=== PATIENT | female | born 1950 | race Caucasian/White ===

== ENCOUNTER → 2023-09-13 13:46 | Outpatient (REF) | payer OTHER, SELFPAY | LOC: HWRAD 13:46 | PROVIDERS: ATTENDING PHYSICIAN Family Medicine | DX: N20.0 Calculus of kidney (principal); R10.2 Pelvic and perineal pain | CPT/HCPCS: 76770; 76856 ==

== ENCOUNTER 2024-01-17 12:08 | Emergency (ER) | payer OTHER, SELFPAY ==
[2024-01-17 12:10] VITALS: BP 167/84
--- NOTE | 2024-01-17 12:41 | ED.GENMED ---
History of Present Illness
<Natali Soriano PA-C - Last Filed: 01/17/24 20:04>
General
Chief Complaint: Head Injury
Source: patient
Exam Limitations: none
Time Seen by Provider: 01/17/24 12:40
Nursing documentation reviewed up to this point in time: agreed with
Travel History
Have you had any contact with someone who has COVID-19?: No
Do you have any symptoms of coronavirus? Fever > 100 degrees, chills, cough, shortness of breath, sore throat, loss of taste or smell, muscle aches, or headache?: No
History of Present Illness
History of Present Illness:
This is a 73-year-old female with a past medical history of asthma, chronic UTIs presenting to the emergency department today with pain in her tailbone and posterior head pain following a fall. Patient states that she has chronic balance issues and
she follows with her primary care for this. Patient states that she is walking into her garage today to get something for her garden when she fell back when she was trying to grab something from a shelf. Patient states that she fell down on her
buttocks and then rolled back and hit the back of her head on the floor. Patient called her daughter who came over and helped her get up. Patient has since been able to ambulate without any difficulties. Patient denies dizziness, lightheadedness,
chest pain, shortness of breath, abdominal pain, headache, visual changes, one-sided weakness. Patient does have some associated neck pain with this. Patient denies any paresthesias. Patient does not take any blood thinners.
Past History
<Natali Soriano PA-C - Last Filed: 01/17/24 20:04>
Past History
ED Past Medical History: Other (Kidney stone 30 years ago)
ED Past Surgical History: Gynecological
Social History
Tobacco: Non-smoker
Alcohol: None
Drug: None
Personal:
Living: with family
Employment: Employed
Family History
Family History: Other (Noncontributory)
Review of Systems
<Natali Soriano PA-C - Last Filed: 01/17/24 20:04>
Review of Systems
All Other Systems: ROS reviewed and negative except as documented in HPI and ROS
Phy Exam
<Natali Soriano PA-C - Last Filed: 01/17/24 20:04>
Physical Exam
Physical Exam:
General: Patient is well appearing and in no acute distress; non-toxic
Skin: See head exam below. No other lacerations/lesions.
Head: There is a palpable hematoma on the right posterior scalp with a jagged 4 cm laceration. No tenderness palpation of the facial bones.
Eyes: Sclera non-icteric. EOMs intact. PERRLA.
Cardiac: Regular rate and rhythm, no murmurs. Tenderness palpation of external chest wall. No ecchymosis or signs of trauma
Peripheral Vascular: No lower extremity edema
Pulm: Normal respiratory effort, no wheezes, rales, rhonchi
Abdomen: No abdominal tenderness to palpation, no ecchymosis, no signs of trauma
Musculoskeletal: Full range of motion of bilateral upper and lower extremities. No pain with passive range of motion. No bony tenderness of the bilateral lower extremities. There is some tenderness overlying the sacrum and the coccyx. But no
ecchymosis or edema. No palpable step-offs or deformities.
Neuro: CN II-XII intact, no focal neurologic deficits. Normal finger to nose, heel to bergman testing.
Psychiatric: Appropriate mood and affect.
Course
<Natali Soriano PA-C - Last Filed: 01/17/24 20:04>
Orders/Labs/Results
Orders:
Orders
01/17/24 13:04
CT Cervical Spine W/o Iv Contr Urgent
Comment:
Reason For Exam: neck pain following fall and head trauma
CT Head W/o Iv Contrast Urgent
Comment:
Reason For Exam: posterior head trauma
Sacrum/Coccyx 2 View CR [CR Sacrum/coccyx Min 2 View] Urgent
Comment:
Reason For Exam: coccyx pain following fall
01/17/24 13:35
Complete Blood Count/With Diff Urgent
Comprehensive Metabolic Panel Urgent
01/17/24 13:37
Acetaminophen [Tylenol] 1,000 mg .ROUTE .STK-MED ONE
01/17/24 13:38
Acetaminophen [Tylenol] 1,000 mg PO NOW STA
01/17/24 15:13
Ibuprofen [Motrin] 600 mg PO NOW STA
01/17/24 15:38
Tetanus/Diphth/Acelpertussis [Adacel] 0.5 ml IM .ONCE ONE
Abnormal Lab Results
01/17/24
13:35
WBC 12.0 H 10^3/uL
(4.8-10.8)
MPV 10.8 H fL
(7.4-10.4)
Abs Immat Gran (auto) 0.1 H 10^3/uL
(0-0.05)
Absolute Neuts (auto) 9.5 H 10^3/uL
(1.4-6.5)
Absolute Monos (auto) 0.7 H 10^3/uL
(0.1-0.6)
Immature Gran % 1.0 H %
(0-0.5)
Neutrophils % 79.4 H %
(42.2-75.2)
Lymphocytes % 12.6 L %
(20.5-51.1)
BUN 23 H mg/dl
(7-17)
Glucose 122 H mg/dl
(70-99)
Calcium 10.9 H mg/dl
(8.4-10.2)
01/17/24 13:35
01/17/24 13:35
Vital Signs
Initial and Last Documented VS:
Initial Vital Signs
Temp Pulse Resp BP Pulse Ox
97.8 F 96 18 167/84 100
01/17/24 12:10 01/17/24 12:10 01/17/24 12:10 01/17/24 12:10 01/17/24 12:10
Last Documented Vital Signs
Temp Pulse Resp BP Pulse Ox
97.8 F 90 18 156/87 99
01/17/24 12:10 01/17/24 15:04 01/17/24 15:04 01/17/24 15:04 01/17/24 15:04
<Pavan Perdue MD - Last Filed: 01/18/24 09:46>
Orders/Labs/Results
Orders:
Orders
01/17/24 13:04
CT Cervical Spine W/o Iv Contr Urgent
Comment:
Reason For Exam: neck pain following fall and head trauma
CT Head W/o Iv Contrast Urgent
Comment:
Reason For Exam: posterior head trauma
Sacrum/Coccyx 2 View CR [CR Sacrum/coccyx Min 2 View] Urgent
Comment:
Reason For Exam: coccyx pain following fall
01/17/24 13:35
Complete Blood Count/With Diff Urgent
Comprehensive Metabolic Panel Urgent
01/17/24 13:37
Acetaminophen [Tylenol] 1,000 mg .ROUTE .STK-MED ONE
01/17/24 13:38
Acetaminophen [Tylenol] 1,000 mg PO NOW STA
01/17/24 15:13
Ibuprofen [Motrin] 600 mg PO NOW STA
01/17/24 15:38
Tetanus/Diphth/Acelpertussis [Adacel] 0.5 ml IM .ONCE ONE
Abnormal Lab Results
01/17/24
13:35
WBC 12.0 H 10^3/uL
(4.8-10.8)
MPV 10.8 H fL
(7.4-10.4)
Abs Immat Gran (auto) 0.1 H 10^3/uL
(0-0.05)
Absolute Neuts (auto) 9.5 H 10^3/uL
(1.4-6.5)
Absolute Monos (auto) 0.7 H 10^3/uL
(0.1-0.6)
Immature Gran % 1.0 H %
(0-0.5)
Neutrophils % 79.4 H %
(42.2-75.2)
Lymphocytes % 12.6 L %
(20.5-51.1)
BUN 23 H mg/dl
(7-17)
Glucose 122 H mg/dl
(70-99)
Calcium 10.9 H mg/dl
(8.4-10.2)
01/17/24 13:35
01/17/24 13:35
Vital Signs
Initial and Last Documented VS:
Initial Vital Signs
Temp Pulse Resp BP Pulse Ox
97.8 F 96 18 167/84 100
01/17/24 12:10 01/17/24 12:10 01/17/24 12:10 01/17/24 12:10 01/17/24 12:10
Last Documented Vital Signs
Temp Pulse Resp BP Pulse Ox
97.8 F 90 18 156/87 99
01/17/24 12:10 01/17/24 15:04 01/17/24 15:04 01/17/24 15:04 01/17/24 15:04
Procedures
Lucialt;Natali Soriano PA-C - Last Filed: 01/17/24 20:04>
Laceration Closure
Right Posterior Scalp:
Status of Wound: clean
Size of Wound in cm: 4
Description of Wound Edges: ragged
Preparation: cleaned with saline
Anesthesia: 1% Lidocaine with epi
Revision/Debridement: routine- no revision
Wound exploration: explored to base- no FB
Type of Closure: single layer closure and other (zeferino )
Additional information:
5 zeferino were placed, patient tolerated the procedure well
<Natali Soriano PA-C - Last Filed: 01/17/24 20:04>
MDM/Problems Addressed
Differential Diagnosis Includes:
ddx include epidural hematoma, concussion, skull fracture, coccygeal fracture, musculoskeletal sprain/strain
MDM/Problems Addressed:
Fall, head trauma, sacral pain:
This is a 73-year-old female with a past medical history of asthma, chronic UTIs presenting to the emergency department today with pain in her tailbone and posterior head pain following a fall. Has a laceration to the right posterior scalp and
complains of sacral pain as well, able to walk without difficulty. On exam, she is well-appearing does have a laceration to right posterior scalp which was repaired with zeferino, patient tolerated procedure well. Her CT scan was negative for any
acute intracranial abnormalities, her CT of the cervical spine demonstrated chronic degenerative changes but no fractures. Considering patient is able to ambulate without difficulty, she has no dizziness, lightheadedness, takes no blood thinner,
has no focal neurologic deficits, she is stable for discharge follow-up with her primary. Reviewed this case with my attending Dr. Perdue.
Chronic conditions affecting care:
asthma, chronic UTIs
Acute Exacerbation and/or Progression of Chronic Illness:
n/a
<Natali Soriano PA-C - Last Filed: 01/17/24 20:04>
*Pulse Oximetry
Patient hypoxic: no
*Critical Care Note
Total Time (30-74mins, 75-104mins- exclusive of procedures): Not Applicable
Data Reviewed
Review of Other/Old Records Reveals: Records (Reviewed ER physician documentation from 03/22/2019)
Source: patient and records
<Natali Soriano PA-C - Last Filed: 01/17/24 20:04>
Patient Management
Escalation/DeEscalation of care consider admission/obs:
Admit not indicated
ED Attending Note
<Natali Soriano PA-C - Last Filed: 01/17/24 20:04>
-
Portions of this chart may have been created with voice recognition software.� Occasional wrong word or��sound alike� substitutions may have occurred due to the inherent limitations of voice recognition software.
<Pavan Perdue MD - Last Filed: 01/18/24 09:46>
ED Attending Note
Patient seen and examined by attending physician: Yes
ED Attending Note:
Pt presents to ED for evaluation after losing balance and falling backwards, landing initially on her buttocks and hitting back of her head against the floor. Pt does not take any blood thinners. Denies LOC. Denies neck pain. Denies loss of
sensation/weakness. Denies dizziness. Denies nausea/vomiting.
General: well nourished female, in mild distress. afebrile.
Heent: eomi. an approx 5 cm total superficial laceration over posterior scalp without active bleeding.
Abdl: soft and nontender.
Neuro: aao x 3. no focal neurological deficit.
Skin: no rash.
Psych: pleasant and cooperative.
CT: no acute findings.
Scalp lac repaired with staple placement. Advised PCP f/u as outpatient. Head injury precautions provided, including potential post concussive syndrome.
Discharge Plan
Departure
Patient Disposition: Home (Routine Discharge)
Date of Disposition: 01/17/24
Time of Disposition: 15:27
Patient with high blood pressure during this ER visit?: Yes
Condition: Good
Discharge Problem:
Fall, Laceration of scalp
Instructions: Laceration Repair With [place] (DC), BLOOD PRESSURE, Fall Prevention for Older Adults
Prescriptions:
No Action
Restasis 0.05% Ophthalmic Emulsion:
1 drp BOTH EYES BID
lidocaine 1 PATCH adhesive patch,medicated
1 patch topical PRN PRN (Reason: pain)
phenazopyridine 100 MG tablet
100 mg PO TIDPRN PRN (Reason: pain)
Cipro
1 dose PO BID
hydrocodone-acetaminophen 1 TABLET tablet
1 tab PO Q4HPRN PRN (Reason: pain) Qty: 10 0RF
ibuprofen 600 MG tablet
600 mg PO Q6 Qty: 20 0RF
Referrals:
Emeli Reza MD [Family Provider] -
Activity Restrictions/Additional Instructions:
5 zeferino were placed in your scalp. Please return to the emergency department should you experience increasing pain around your wound, surrounding redness to your wound, purulent drainage from your wound, fevers or chills, dizziness,
lightheadedness, chest pain, shortness of breath, visual changes, visual loss, or any other concerning signs or symptoms.
You can report to your family doctor to have zeferino removed in 7-10 days.
Interventions
Interventions:
*Risk Screen - Suicide Last Done: 01/17/24 14:39
*General Assessment Last Done: 01/17/24 12:10
*Neglect/Abuse Screening Last Done: 01/17/24 14:39
ED- Fall Risk Assessment Last Done: 01/17/24 15:58
*ED COVID-19 Vaccine History Last Done: 01/17/24 12:10
*Nursing Disposition Last Done: 01/17/24 15:58
ED- Neurological Assessment Last Done: 01/17/24 14:39
ED-Skin Assessment Last Done: 01/17/24 14:39
Discharge Date and Time
Discharge Date/Time: 01/17/24 15:59
Print Language: CAMBODIAN
[2024-01-17] MEDS: TYLENOL 1000 MG PO (13:40)
[2024-01-17 13:45] LABS: % Basophils 0.3 % (0-2); % Eosinophils 0.5 % (0-6); % Lymphocytes 12.6 % (20.5-51.1); % Monocytes 6.2 % (1.7-9.3); % Neutrophils 79.4 % (42.2-75.2); Absolute Eosinophils 0.1 10^3/uL (0-0.7); Absolute Immature Granulocytes 0.1 10^3/uL (0-0.05); Absolute Lymphocytes 1.5 10^3/uL (1.2-3.4); Absolute Monocytes 0.7 10^3/uL (0.1-0.6); Absolute Neutrophils 9.5 10^3/uL (1.4-6.5); Hematocrit 42.4 % (37.0-47.0); Hemoglobin 14.4 g/dL (12.0-16.0); Mean Corpuscular Hgb 30.9 pg (27.0-31.0); Mean Platelet Volume 10.8 fL (7.4-10.4); Nucleated Red Blood Cells % 0 %; Platelet Count 184 10^3/uL (130-400); Red Blood Cell Count 4.66 10^6/uL (4.20-5.40); Red Cell Dist. Width 13.2 % (11.5-14.5)
[2024-01-17 14:32] LABS: ALT (SGPT) 23 U/L (0-35); AST (SGOT) 28 U/L (14-36); Albumin 4.3 g/dl (3.5-5.0); Alkaline Phosphatase 69 U/L (38-126); Blood Urea Nitrogen 23 mg/dl (7-17); Calcium 10.9 mg/dl (8.4-10.2); Carbon Dioxide 24 mmol/L (22-30); Chloride 107 mmol/L (98-107); Glucose 122 mg/dl (70-99); Potassium 4.3 mmol/L (3.5-5.1); Sodium 138 mmol/L (135-145); Total Bilirubin 0.8 mg/dl (0.2-1.3); Total Protein 7.1 g/dl (6.3-8.2); eGFR > 60.00
[2024-01-17 15:04] VITALS: BP 156/87
[2024-01-17] MEDS: MOTRIN 600 MG PO (15:21)
[2024-01-17] MEDS: ADACEL 0.5 ML IM (15:43)
== END 2024-01-17 15:59 | disposition home or self-care (01) ==
LOC: EMR 12:08
PROVIDERS: Physician Assistant; EMERGENCY PHYSICIAN Emergency Medicine; FAMILY PHYSICIAN Family Medicine
DX: S01.01XA Laceration without foreign body of scalp, initial encounter (principal); M54.50 Low back pain, unspecified; S00.03XA Contusion of scalp, initial encounter; M54.2 Cervicalgia; W19.XXXA Unspecified fall, initial encounter; Y93.01 Activity, walking, marching and hiking; Y92.008 Other place in unspecified non-institutional (private) residence as the place of occurrence of the external cause; Z23 Encounter for immunization; R03.0 Elevated blood-pressure reading, without diagnosis of hypertension; J45.909 Unspecified asthma, uncomplicated; Z87.440 Personal history of urinary (tract) infections; Z87.442 Personal history of urinary calculi; Z91.048 Other nonmedicinal substance allergy status
CPT/HCPCS: 99285; 12002; 90471; 70450; 72125; 72220; 80053; 85025; 90715

== ENCOUNTER → 2024-02-22 07:32 | Outpatient (REF) | payer OTHER, SELFPAY | LOC: MRI 3T 07:32 | PROVIDERS: ATTENDING PHYSICIAN Family Medicine | DX: M54.41 Lumbago with sciatica, right side (principal) | CPT/HCPCS: 72148 ==

== ENCOUNTER → 2024-03-06 10:33 | Outpatient (REF) | payer OTHER, SELFPAY | LOC: WDC 10:33 | PROVIDERS: ATTENDING PHYSICIAN Family Medicine | DX: Z12.31 Encounter for screening mammogram for malignant neoplasm of breast (principal) | CPT/HCPCS: 77063; 77067 ==

== ENCOUNTER 2024-04-11 16:38 | Inpatient (IN) | payer OTHER, SELFPAY ==
[2024-04-11] VITALS (10 sets, daily range): BP systolic 100–142; BP diastolic 58–90; BMI 23.4; BMI 23.3
--- NOTE | 2024-04-11 09:05 | ED.GENMED ---
History of Present Illness
General
Chief Complaint: Musculo-Skeletal Complaint
Time Seen by Provider: 04/11/24 08:52
History of Present Illness
History of Present Illness:
Patient is a 73-year-old woman with history of arthritis, recurrent UTIs presenting to the emergency department with knee pain. Patient states that she had a fall a few months ago. She been having chronic back pain since then. She has been having
difficulty ambulating as well secondary to the pain. She noticed that her right knee was more swollen which she attributed to the way she was ambulating. However 2 days ago she states that the swelling suddenly worsened. It was extremely painful.
It felt hot to touch. She been having some nausea and fevers at home. No numbness tingling. She does state that her ankle feels more swollen as well. No recent trauma. No tick bites.
Past History
Past History
ED Past Medical History: Other (Kidney stone 30 years ago)
ED Past Surgical History: Gynecological
Social History
Tobacco: Non-smoker
Alcohol: None
Drug: None
Personal:
Living: with family
Employment: Employed
Family History
Family History: Other (Noncontributory)
Phy Exam
Physical Exam
Physical Exam:
GENERAL: in no acute distress
HEENT: normocephalic, extraocular movements intact, moist oral mucosa
NECK: normal inspection
RESPIRATORY: no respiratory distress, clear to auscultation bilaterally
CARDIOVASCULAR: regular rate and rhythm
ABDOMEN/: soft, non-distended, non-tender to palpation, no rebound or guarding
EXTREMITIES: Right lower extremity with hot swollen knee with limited range of motion secondary to pain, no overlying cellulitis, dopplerable DP pulses. Left lower extremity with no tenderness or swelling at the knee. Warm, dopplerable distal
pulses.
NEUROLOGIC: awake and alert, moves all extremities
SKIN: warm
Course
Orders/Labs/Results
Orders:
Orders
04/11/24 09:04
CR Knee- Right 4 Or More View* Urgent
Comment:
Reason For Exam: knee pain, swelling
04/11/24 09:05
Acetaminophen [Tylenol] 1,000 mg PO NOW STA
04/11/24 09:14
Basic Metabolic Panel Urgent
CBC/With ESR Urgent
CRP [C-Reactive Protein] Urgent
04/11/24 11:14
Body Fluid Cell Count Urgent
What is the Body Fluid: joint
Date Specimen was Collected: 04/11/24
Time Specimen was Collected: 10:47
Comment: with DIFF
Body Fluid Crystals Urgent
What is the Body Fluid: joint
Date Specimen was Collected: 04/11/24
Time Specimen was Collected: 10:47
Fluid Culture with Gram Stain Urgent
MADELYN Source: Joint Fluid
Specimen Description:
Date Specimen was Collected: 04/11/24
Time Specimen was Collected: 10:47
04/11/24 14:59
Blood Culture Urgent
MADELYN Source: Blood/Venous
Specimen Description:
CefTRIAXone [Rocephin] 2,000 mg IV NOW STA
04/11/24 15:29
Blood Culture Routine
MADELYN Source: Blood/Venous
Specimen Description:
04/11/24 16:00
*Vancomycin IV Pharmacy to Dose VANCOMYCIN Pharmacy to Dose [VANCOCIN Pharmacy to Dose] 1 each Pharmacy To Prepare [Call Pharmacy To Prepare] 0 ml IV PER PROTOCOL
Abnormal Lab Results
04/11/24
09:14
MPV 11.1 H fL
(7.4-10.4)
Absolute Neuts (auto) 7.1 H 10^3/uL
(1.4-6.5)
Absolute Lymphs (auto) 1.1 L 10^3/uL
(1.2-3.4)
Absolute Monos (auto) 0.7 H 10^3/uL
(0.1-0.6)
Neutrophils % 79.3 H %
(42.2-75.2)
Lymphocytes % 12.3 L %
(20.5-51.1)
BUN 20 H mg/dl
(7-17)
Glucose 101 H mg/dl
(70-99)
Calcium 11.3 H mg/dl
(8.4-10.2)
C-Reactive Protein 22.80 H mg/L
(0.0-10.00)
04/11/24 09:14
04/11/24 09:14
Vital Signs
Initial and Last Documented VS:
Initial Vital Signs
Temp Pulse Resp BP Pulse Ox
100.0 F 91 18 141/82 100
04/11/24 08:34 04/11/24 08:34 04/11/24 08:34 04/11/24 08:34 04/11/24 08:34
Last Documented Vital Signs
Temp Pulse Resp BP Pulse Ox
97.9 F 91 18 100/84 98
04/11/24 11:15 04/11/24 08:34 04/11/24 08:34 04/11/24 13:00 04/11/24 13:45
Procedures
Incision/Drainage/Joint Aspiration
Right Knee:
Anethesia: 1% Lidocaine
Preparation: cleaned with Betadine
Type of procedure: aspiration
Nature of site: other (swelling)
How much fluid was obtained?: number in mls (25)
Fluid description: cloudy
MDM/Problems Addressed
Differential Diagnosis Includes:
Patient is a 73-year-old woman with history of arthritis presenting to the emergency department with knee pain that acutely worsened 2 days ago. Vitals here notable for temperature of 100 and exam is notable for hot swollen right knee. Concern for
septic arthritis versus arthritis versus gout. Could be osteo. Doubt any fracture. Will check blood work including inflammatory markers and x-ray. Will complete an arthrocentesis. Will pain control.
*Critical Care Note
Total Time (30-74mins, 75-104mins- exclusive of procedures): Not Applicable
Update Note
Update Note:
On reevaluation patient states that the pain is still there. X-ray per my interpretation with no obvious fracture. . I did completed an arthrocentesis of the knee. Results does show WBC of 26,000 with significant PMN at 89%. Given that patient
had a oral temperature of 100 on arrival with the above joint fluid analysis I did discuss orthopedics. After conversation with orthopedics less likely to be septic arthritis however could admit until cultures result. I did update patient and
family members at bedside of these findings. Given the significant ambulatory dysfunction and initial temperature will admit with IV antibiotics until the cultures result. Discussed with hospitalist.
ED Attending Note
-
Portions of this chart may have been created with voice recognition software.� Occasional wrong word or��sound alike� substitutions may have occurred due to the inherent limitations of voice recognition software.
Discharge Plan
Departure
Patient Disposition: Admit
Date of Disposition: 04/11/24
Time of Disposition: 14:59
Presentation/result/management discussed w/ accepting MD/DO: Hospitalist
Discharge Problem:
Knee swelling
Prescriptions:
No Action
Restasis 0.05% Ophthalmic Emulsion:
1 drp BOTH EYES BID
lidocaine 1 PATCH adhesive patch,medicated
1 patch topical PRN PRN (Reason: pain)
phenazopyridine 100 MG tablet
100 mg PO TIDPRN PRN (Reason: pain)
Cipro
1 dose PO BID
hydrocodone-acetaminophen 1 TABLET tablet
1 tab PO Q4HPRN PRN (Reason: pain) Qty: 10 0RF
ibuprofen 600 MG tablet
600 mg PO Q6 Qty: 20 0RF
Referrals:
Emeli Reza MD [Family Provider] -
Interventions
Interventions:
*Risk Screen - Suicide Last Done: 04/11/24 08:34
*General Assessment Last Done: 04/11/24 08:34
*Neglect/Abuse Screening Last Done: 04/11/24 08:34
ED- Fall Risk Assessment Last Done: 04/11/24 08:55
*ED COVID-19 Vaccine History Last Done: 04/11/24 08:55
ED-Musculoskeletal Assessment Last Done: 04/11/24 08:55
Discharge Date and Time
Print Language: KYRGYZ
[2024-04-11] MEDS: TYLENOL 1000 MG PO (09:14)
[2024-04-11 09:22] LABS: % Basophils 0.2 % (0-2); % Eosinophils 0.3 % (0-6); % Immature Granulocytes 0.3 % (0-0.5); % Lymphocytes 12.3 % (20.5-51.1); % Monocytes 7.6 % (1.7-9.3); % Neutrophils 79.3 % (42.2-75.2); Absolute Lymphocytes 1.1 10^3/uL (1.2-3.4); Absolute Monocytes 0.7 10^3/uL (0.1-0.6); Absolute Neutrophils 7.1 10^3/uL (1.4-6.5); Hematocrit 42.5 % (37.0-47.0); Hemoglobin 14.7 g/dL (12.0-16.0); Mean Corp Hgb Conc. 34.6 g/dL (33.0-37.0); Mean Corpuscular Hgb 30.9 pg (27.0-31.0); Mean Corpuscular Volume 89.5 fL (81.0-99.0); Mean Platelet Volume 11.1 fL (7.4-10.4); Nucleated Red Blood Cells % 0 %; Platelet Count 169 10^3/uL (130-400); Red Blood Cell Count 4.75 10^6/uL (4.20-5.40); Red Cell Dist. Width 12.7 % (11.5-14.5)
[2024-04-11 09:46] LABS: Erythrocyte Sed Rate 19 mm/hour (0-20)
[2024-04-11 09:48] LABS: Blood Urea Nitrogen 20 mg/dl (7-17); Calcium 11.3 mg/dl (8.4-10.2); Carbon Dioxide 23 mmol/L (22-30); Chloride 105 mmol/L (98-107); Estimated Creatinine Clearance 62 ml/min; Glucose 101 mg/dl (70-99); Potassium 4.1 mmol/L (3.5-5.1); Sodium 140 mmol/L (135-145); eGFR > 60.00
[2024-04-11 13:19] LABS: Body Fluid Mononuclear 10.8 %; Body Fluid Polymorphonuclear 89.2 %; Body Fluid WBC 26050 /CUMM
[2024-04-11 13:35] LABS: Body Fluid Second Tech EM
[2024-04-11] MEDS: ROCEPHIN 2000 MG IV (15:46)
--- NOTE | 2024-04-11 16:07 | HPS.HSE ---
Family Physician
-
Family Physician: Emeli Reza MD
Chief Complaint
-
Right knee pain
History of Present Illness
Patient is a 73 years old female with no significant past medical history other than hypothyroidism who presents to the emergency room with worsening of right knee pain and swelling. Patient reports falling 3 months prior to presentation at that
time hurting back. Patient had an evaluation with MRI which showed compression fracture and multilevel degenerative joint disease, although with no evidence of infection with weeks prior to presentation. She noticed developing right knee pain
attributing that to the problem walking due to her lower back pain. Although over the last 24 to 48 hours pain became more intensive with increased edema and erythema. Patient reports fever at home. In addition patient complains of diffuse and
multiple joint pain throughout the day that including lower back pain, wrists and elbows. She denies any stiffness/morning symptoms. She denies any trauma to the knee, recent travel or tick bite, rash.
Patient presented emergency room and had right knee arthrocentesis with fluid findings relevant for elevated white count over 20,000. Synovial fluid was negative for crystals and negative Gram stain pending cultures.
Medical History
Past Medical History
Past Medical History: Reports GERD and Hypothyroidism
Past Surgical History: Reports None
Social History
Tobacco: Non-smoker
Alcohol: None
Drug: None
Personal:
Living: With Family
Employment: Retired
Family History
Family History: Not pertinent
Allergies / Home Medications
Allergies reflects when Allergies were last updated in [facility].
Home Medications with original date entered in [facility]
Allergy/Medication List:
Allergies
Allergy/AdvReac Type Severity Reaction Status Date / Time
NKA - No Known Allergies Allergy Severe nka Uncoded 01/17/24 12:13
dust mites,mold Allergy cough Uncoded 01/17/24 12:13
Home Medications
Lactobac no.2-Bifidobac no.1-S. thermo 112.5 billion cell capsule (Visbiome) 1 cap PO DAILY 04/11/24
cetirizine 10 mg tablet (Zyrtec) 10 mg PO DAILY 04/11/24
levothyroxine 112 mcg tablet (Synthroid) 112 mcg PO DAILY 04/11/24
pantoprazole 20 mg tablet,delayed release (Protonix) 20 mg PO DAILY 04/11/24
rosuvastatin 5 mg tablet 5 mg PO DAILY 04/11/24
Review of Systems
-
A 12 point ROS was completed and negative except as noted: Yes
Physical Exam
Vital Signs
Vital Signs
Temp Pulse Resp BP Pulse Ox
97.9 F 91 18 100/84 98
04/11/24 11:15 04/11/24 08:34 04/11/24 08:34 04/11/24 13:00 04/11/24 13:45
Physical Exam
General: Well Developed, Well Nourished and No Apparent Distress
HEENT: NormoCephalic, Moist mucous membranes and Atraumatic
Respiratory: Clear
Cardiac: S1/S2 and Regular Rhythm; No Murmur or Rub
GI: Soft, Non Tender, Non Distended and Normal Bowel Sounds; No Organomegaly
Rectal: Deferred by Provider
Musculoskeletal: No Clubbing, No Cyanosis, No Edema and Other (Right knee with erythema and induration without fluctuance. Decreased range of motion's. Good peripheral pulses)
Skin: No Rash
Neuro: Awake, Alert, Oriented, AO x 3 and Nonfocal/grossly intact
Psych: Anxious
Laboratory Results
-
04/11/24 09:14
04/11/24 09:14
Data Reviewed
-
Diagnostic Radiology: Report Reviewed by me
Lab Data: Labs Reviewed by me
Impression/Plan
-
IMPRESSION:
Right knee monoarthritis with concern for septic arthritis
Diffuse joint pain with prior history of osteoarthritis
Status post fall 3 months prior to presentation
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
Other conditions
Hypothyroidism.
GERD.
PLAN:
Right knee arthritis with concern for septic arthritis
Status post diagnostic arthrocentesis in ED
Synovial fluid with significant leukocytosis over 20K with neutrophil predominance. Gram stain negative pending cultures. Crystal negative
Noted with very mild elevation of CRP.
Follow synovial fluid cultures
Follow blood cultures.
Orthopedic consult
ID consult
Empiric antibiotics initiated in ED: Vancomycin/ceftriaxone.
Low risk but will check Lyme titer.
Check rheumatoid factor
Persistent lower back pain
MRI of the lumbar spine from 02/21 reviewed and findings consistent with subacute nondisplaced fracture at S4, superior endplate fracture at L2, multilevel DJD to lumbar spine, moderate bilateral facet joint arthrocentesis at L5/S1.
If persistent pain, positive blood cultures or febrile, would consider to repeat study.
Hypothyroidism on supplementation
[2024-04-11] MEDS: VANCOCIN 300 MG IV (16:27)
[2024-04-11] MEDS: VANCOCIN 300 ML IV (16:27)
--- NOTE | 2024-04-11 17:48 | CON.ID ---
Consultation
-
Date/Time Consultation Requested: 04/11/2024 1558
Date/Time Consultation Performed: 04/11/2024 1730
Requesting Provider: Dr. Weir
Performing Provider: Dr. Lopez
Reason for Consultation: Suspected right knee septic arthritis
Chief Complaint / Past History
History of Present Illness
Ramonita Foster is a 73-year-old female being evaluated at the request of Dr. Weir in regards to suspected right knee septic arthritis. History is obtained from chart review, along with patient interview.
The patient reports that on 02/14/2024 she fell in her garage and landed on her backside. She reports that she came to the emergency room at that time secondary to a laceration to the back portion of her head. She also recalls that she had a sore
buttock region. Over the next several weeks she noted ongoing discomfort and an MRI ultimately was performed which revealed a fracture of her SI joint. She was supposed to get a steroid injection, but this was delayed secondary to prior
authorization issues.
She reports that yesterday she was doing well, and was attending medical office visits with her who unfortunately has glioblastoma. In the evening she had the acute onset of right knee pain and swelling. She noted some erythema of the knee
that also extended to some degree proximally and distally. She notes that the knee was quite warm. She denied any groin pain. She denies any fevers, but notes that she is always cold.
She denies any significant outdoor exposure. She has 2 cats but they are indoor cats. She denies having seen any ticks on her body. She denies having seen any rashes.
Past History
Additional Past Medical History:
GERD
Hypothyroidism
Asthma
Additional Past Surgical History:
Thyroidectomy
DAT
Allergy History:
None
Medications Reviewed: Yes
Current Antibiotics:
Vancomycin
Ceftriaxone
Social History
Tobacco: Non-Smoker
Alcohol: None
Drug: None
Personal:
Living: With Family
Employment: Retired
Family History
Family History: Not Pertinent
Review of Systems
Vital Signs
Temp Pulse Resp BP Pulse Ox
97.9 F 91 18 126/79 97
04/11/24 11:15 04/11/24 08:34 04/11/24 08:34 04/11/24 15:00 04/11/24 16:56
Physical Exam
Physical Exam
Constitutional: No Acute Distress, Comfortable and Non-toxic
Eyes: No Conjunctival Hemorrhage and Sclera Anicteric
Oral: No Thrush and No Ulcers
Cardiovascular: Regular Rate and S1/S2; Negative S3/S4
Pulmonary: Clear; Negative Wheezes, Rales or Rhonchi
Gastrointestinal: Soft, Non Tender, Non Distended and Normal Bowel Sounds
Extremities: Edema (Trace lower extremity edema) and Erythema (Mild right knee)
Musculoskeletal: Joint Swelling (Marked, right knee) and Joint Effusion (Marked, right knee)
Skin: Warm and Dry; Negative Rash or Jaundice
Neurological: Awake, Alert and AO x 3
Lab / Diagnostic Study Results
04/11/24 09:14
04/11/24 09:14
Abs Immat Gran (auto) 0.0 10^3/uL (0-0.05) 04/11/24 09:14
Absolute Neuts (auto) 7.1 10^3/uL (1.4-6.5) H 04/11/24 09:14
Absolute Lymphs (auto) 1.1 10^3/uL (1.2-3.4) L 04/11/24 09:14
Absolute Monos (auto) 0.7 10^3/uL (0.1-0.6) H 04/11/24 09:14
Absolute Basos (auto) 0.0 10^3/uL (0-0.2) 04/11/24 09:14
Immature Gran % 0.3 % (0-0.5) 04/11/24 09:14
Neutrophils % 79.3 % (42.2-75.2) H 04/11/24 09:14
Lymphocytes % 12.3 % (20.5-51.1) L 04/11/24 09:14
Monocytes % 7.6 % (1.7-9.3) 04/11/24 09:14
Eosinophils % 0.3 % (0-6) 04/11/24 09:14
Basophils % 0.2 % (0-2) 04/11/24 09:14
ESR 19 mm/hour (0-20) 04/11/24 09:14
C-Reactive Protein 22.80 mg/L (0.0-10.00) H 04/11/24 09:14
Microbiology Results
Micro:
04/11/24 15:39 Blood Culture - Pending
Blood/Venous
04/11/24 15:39 Blood Culture - Pending
Blood/Venous
04/11/24 11:14 Body Fluid Culture - Pending
Joint Fluid Gram Stain - Preliminary
Laboratory Tests
04/11/24
11:14
Fluid WBC 95831
Fluid Mononuclear Cell 10.8
Fl Polymorphonucl Cell 89.2
Cryatal Exam no crystals seen
Assessment / Plan
Acute right knee effusion
Suspected right knee septic arthritis
Elevated CRP
GERD
Hypothyroidism
Asthma
Recommendations:
Continue with vancomycin and ceftriaxone. Monitor Vanco levels closely.
Patient reported some scalp pruritus during the exam. Vancomycin infusion was held for 20 min, and I directed nursing to continue infusions at a slower rate.
Cultures have been sent (blood, joint). Will await further data to guide antimicrobial selection and de-escalation.
Monitor white count & temperature curve.
Although less likely given hx, will check synovial fluid Lyme PCR
Follow ESR / CRP
--- NOTE | 2024-04-11 18:37 | CON.ORTHO ---
Consultation - Orthopedics
History
HPI: 73-year-old female presented to the emergency department this morning complaints of right knee pain and swelling. General arthrocentesis emergency department was admitted to the hospitalist service. Orthopedics was consulted for evaluation of
right knee to rule out septic joint. Patient reports that she does have a history of right knee osteoarthritis and has had problems with her knee for many years. She has undergone multiple intra-articular corticosteroid injections as a result of
pain secondary to knee osteoarthritis in the past. She reports no new activity or injury recently. 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
Allergies / Home Medications
Past medical history: Osteoarthritis
Past surgical history: Gynecological
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
Family history: Not pertinent
Allergy/AdvReac Type Severity Reaction Status Date / Time
house dust mite Allergy COUGH Verified 04/11/24 18:12
mold Allergy COUGH Verified 04/11/24 18:12
�Medication �Instructions �Recorded
Lactobac no.2-Bifidobac no.1-S. 1 cap PO DAILY 04/11/24
thermo 112.5 billion cell capsule
(Visbiome)
cetirizine 10 mg tablet (Zyrtec) 10 mg PO DAILY 04/11/24
levothyroxine 112 mcg tablet 112 mcg PO DAILY 04/11/24
(Synthroid)
pantoprazole 20 mg tablet,delayed 20 mg PO DAILY 04/11/24
release (Protonix)
rosuvastatin 5 mg tablet 5 mg PO DAILY 04/11/24
Vital Signs / Lab Results
Temp Pulse Resp BP Pulse Ox
97.9 F 96 19 142/77 97
04/11/24 18:31 04/11/24 18:31 04/11/24 18:31 04/11/24 18:31 04/11/24 18:31
04/11/24 09:14
04/11/24 09:14
CRP 22.8, ESR 19 which is within normal limits
10 point review systems reviewed and negative unless otherwise stated
General: Pleasant, no acute distress at rest, nontoxic appearing
Musculoskeletal right lower extremity
Skin intact, there is no ecchymotic staining, there is no erythema on inspection
There is a large palpable knee effusion
There is palpable synovial warmth
Knee range of motion both active and passive 0 to about 100 degrees
No gross motor or sensory deficits distally
Diagnostic studies
X-rays right knee nonweightbearing do show some marginal osteophyte formation, mild joint space narrowing nonweightbearing views. No fractures. No chondrocalcinosis
Assessment / Plan
73-year-old female history of right knee osteoarthritis with effusion pain and swelling. Arthrocentesis did yield synovial white blood cell count of approximately 26,000. I explained her that this is not typically within the range that is
concerning for septic arthritis is much more in line with inflammatory processes. Cultures were sent Gram stain has been negative. Certainly can continue to follow cultures but would not recommend any surgical intervention unless there is
significant deterioration in her clinical examination. She is nonseptic appearing. Certainly if culture should yield anything, would recommend surgical irrigation and debridement. Would recommend immobilization while in bed. Antibiotics per
primary team/infectious disease recommendations. Please reach out any questions or concerns.
--- NOTE | 2024-04-11 19:08 | PHA.VAN.IN ---
Assessment
- Assessment
Renal Function: Appears similar to baseline
Concomitant Antimicrobials: ceftriaxone
AUC Dosing Plan
- Dosing Variables
Dosing Weight (kg): 63.5
Dosing CrCl (ml/min): 62
Vd coefficient (L/kg): 0.7
- Empiric Dosing
Initial / Loading Dose: vanc 1500mg administered @ 1627
Maintenance Regimen: vanc 1250mg Q24h starting 04/12 0600
Estimated AUC (mcg*h/mL): 525
Estimated Peak (mcg*h/mL): 38.1
Estimated Trough (mcg/ml): 10.8
Estimated Half Life (H): 12.4
- Monitoring
No levels ordered at this time: consider levels in next few days
Pharmacokinetics Vancomycin I
- -
Patient Age: 73
Patient Sex: Female
Vancomycin Day #: 1
Indication: Bone And Joint
Requesting Provider: Dr. Weir
Pertinent Antimicrobial Allergies:
no pertinent antimicrobial allergies
Height / Weight:
Height 5 ft 5 in
Actual Weight 63.503 kg
- Vital Signs / Lab Results
Temp Pulse Resp BP Pulse Ox
97.9 F 96 19 142/77 97
04/11/24 18:31 04/11/24 18:31 04/11/24 18:31 04/11/24 18:31 04/11/24 18:31
Lab Results - Hematology
04/11/24
09:14
WBC 9.0
Lab Results - Chemistry
04/11/24
09:14
BUN 20 H
Creatinine 0.7
Estimated Creat Clear 62
Microbiology Results
04/11/24 11:14 Gram Stain - Preliminary
Joint Fluid
[2024-04-11] MEDS: ROXICODONE 5 MG PO (19:45)
[2024-04-11] MEDS: HEPARIN SC (19:45)
[2024-04-12] MEDS: VANCOCIN 275 MG IV (05:47)
[2024-04-12] MEDS: TYLENOL 650 MG PO (05:47)
[2024-04-12] MEDS: SYNTHROID 112 MCG PO (05:47)
[2024-04-12 07:56] VITALS: BP 118/74
[2024-04-12 08:34] LABS: Hepatitis C Antibody Negative (Negative)
--- NOTE | 2024-04-12 10:23 | PHA.VAN.FU ---
Vancomycin Assessment / Plan
- Assessment
Renal Function: No New Labs Today
In the past 24 hrs, patient has been: Afebrile
Concomitant Antimicrobials: Ceftriaxone
- Dosing Plan
Continue: vancomycin 1250 mg q24h - first dose 0600 04/12
Dosing Comments: pt reported some scalp pruritus during exam; ID directed nursing to cont
at a slower rate
- Monitoring Plan
No level(s) ordered at this time: consider levels when pt nears steady state
- Follow Up
Pharmacy will continue to follow.
Vancomycin Follow UP
- -
Patient Age: 73
Patient Sex: Female
Vancomycin Day #: 2
Indication: Bone And Joint
Requesting Provider: Dr. Weir
Pertinent Antimicrobial Allergies:
no pertinent antimicrobial allergies
Height / Weight:
Height 5 ft 5 in
Actual Weight 63.503 kg
- Vital Signs / Lab Results
Temp Pulse Resp BP Pulse Ox
98.4 F 81 20 118/74 96
04/12/24 07:56 04/12/24 07:56 04/12/24 07:56 04/12/24 07:56 04/12/24 07:56
Lab Results - Hematology
04/11/24
09:14
WBC 9.0
Lab Results - Chemistry
04/11/24
09:14
BUN 20 H
Creatinine 0.7
Estimated Creat Clear 62
Microbiology Results
04/11/24 11:14 Gram Stain - Preliminary
Joint Fluid
[2024-04-12] MEDS: VISBIOME 1 CAP PO (10:41)
[2024-04-12] MEDS: CRESTOR 5 MG PO (10:41)
[2024-04-12] MEDS: PROTONIX 20 MG PO (10:41)
[2024-04-12] MEDS: ULTRAM 25 MG PO ×2 (10:41→16:45)
[2024-04-12] MEDS: ZYRTEC PO (10:43)
[2024-04-12 10:45] VITALS: BP 118/74; PULSE 81
[2024-04-12] MEDS: HEPARIN 5000 UNITS SC ×2 (10:49→20:27)
--- NOTE | 2024-04-12 12:07 | W.PN.ID1 ---
Date of Service
Date of Service: April 12, 2024
Today's Communication
DC Vanco.
Continue ceftriaxone for now.
Assessment / Plan
Acute right knee effusion
Suspected right knee septic arthritis
Elevated CRP
GERD
Hypothyroidism
Asthma
Recommendations:
Synovial fluid: neg crystals, cx neg to date.
synovial fluid Lyme PCR pending; serum Lyme screen pending
DC Vancomycin.
Continue ceftriaxone for now.
Follow ESR / CRP
Monitor white count & temperature curve.
Chief Complaint
-: Other (knee pain)
Subjective / Review of Systems
Right knee better - able to bear weight and ambulate today.
Vital Signs / Physical Exam
Vital Signs
Vital Signs
Temp Pulse Resp BP Pulse Ox
98.4 F 81 20 118/74 96
04/12/24 07:56 04/12/24 07:56 04/12/24 07:56 04/12/24 07:56 04/12/24 07:56
Physical Exam
Constitutional: No Acute Distress and Comfortable
Gastrointestinal: Soft, Non Tender, Non Distended and Normal Bowel Sounds
Musculoskeletal: Other (right knee warm, moderate induration, no erythema. ROM intact. )
Objective Data
Lab Data
Lab Results
04/11/24 09:14
04/11/24 09:14
ESR 19 mm/hour (0-20) 04/11/24 09:14
Estimated Creat Clear 62 ml/min 04/11/24 09:14
C-Reactive Protein 22.80 mg/L (0.0-10.00) H 04/11/24 09:14
Most recent labs reviewed.
Micro Results:
04/11/24 11:14 Body Fluid Culture - Preliminary
Joint Fluid No Growth After 18-24 Hours
Gram Stain - Preliminary
04/11/24 15:39 Blood Culture - Pending
Blood/Venous
04/11/24 15:39 Blood Culture - Pending
Blood/Venous
Laboratory Tests
04/11/24
11:14
Fluid WBC 09243
Fluid Mononuclear Cell 10.8
Fl Polymorphonucl Cell 89.2
Cryatal Exam no crystals seen
--- NOTE | 2024-04-12 13:02 | CM ---
Patient seen bedside.
IA completed.
patient lives at home with spouse who she is primary caregiver for. (brain tumor/dementia)
Patient independent prior to admission without assistive devices.
patient drives.
patient denies home care needs.
IMM completed.
PCP: Dr Marie
Pharmacy: [facility] [address]
Plan: home no needs.
--- NOTE | 2024-04-12 13:16 | W.PN.UPDATE ---
Update Note
Progress Note Update
Patient seen evaluated bedside. She reports that pain is improved somewhat. She has been ambulating without much difficulty. She reports improved range of motion.
Physical examination right lower extremity reveals continued palpable effusion
Active knee range of motion 0 to about 100 degrees
There is no significant joint line tenderness
No significant tenderness palpation about suprapatellar effusion
No micromotion tenderness
No gross motor or sensory deficits
Improved synovial warmth
73-year-old female with right knee effusion. I doubt septic joint given clinical examination and synovial white blood cell count. Will continue to follow culture certainly if anything should result, surgical irrigation debridement would be
indicated. I did discuss with patient follow-up on outpatient basis. I be happy to see her in office upon discharge should there not be any evidence of infection and she like to trial an aspiration corticosteroid junction for underlying
degenerative joint disease. Please reach out any questions or concerns.
[2024-04-12 15:04] VITALS: BP 167/88
--- NOTE | 2024-04-12 16:19 | W.PN.HOSP.TC ---
Today's Communication/Plan
-
Right knee pain, edema and range of motion improved since admission and well antibiotics
Final culture data pending
Continued ceftriaxone as per ID
Assessment / Plan
Assessment / Plan
IMPRESSION:
Right knee monoarthritis with concern for septic arthritis
Diffuse joint pain with prior history of osteoarthritis
Status post fall 3 months prior to presentation
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
Other conditions
Hypothyroidism.
GERD.
PLAN:
Right knee arthritis with concern for septic arthritis
Status post diagnostic arthrocentesis in ED
Synovial fluid with significant leukocytosis over 20K with neutrophil predominance. Gram stain negative pending cultures. Crystal negative
Noted with very mild elevation of CRP.
Follow synovial fluid cultures
Follow blood cultures.
Orthopedic and ID consult appreciated
Empiric antibiotics initiated in ED: Consolidated from vancomycin/ceftriaxone to ceftriaxone alone
Low risk but will check Lyme titer.
Check rheumatoid factor
Persistent lower back pain
MRI of the lumbar spine from 02/21 reviewed and findings consistent with subacute nondisplaced fracture at S4, superior endplate fracture at L2, multilevel DJD to lumbar spine, moderate bilateral facet joint arthrocentesis at L5/S1.
If persistent pain, positive blood cultures or febrile, would consider to repeat study.
Hypothyroidism on supplementation
Anticipated Discharge: 24 - 48 hours
Subjective/Interval History
-
Date of Service: April 12, 2024
Objective Data
-
Vital Signs:
Vital Signs
Temp Pulse Resp BP Pulse Ox
97.6 F 106 18 167/88 99
04/12/24 15:04 04/12/24 15:04 04/12/24 15:04 04/12/24 15:04 04/12/24 15:04
I&O
04/11/24 04/12/24 04/13/24
06:59 06:59 06:59
Intake Total 480 / 480 275 / 275
Balance 480 / 480 275 / 275
Physical Exam
-
General: Well Developed and No Apparent Distress
HEENT: Normocephalic, Atraumatic and Moist Mucous Membranes
Respiratory: Clear to Auscultation
Cardiac: Regular Rhythm and S1/S2; Negative Murmur, Rub or Gallop
GI: Soft, Nontender, Nondistended and Normal Bowel Sounds; Negative Organomegaly
Rectal: Deferred by Provider
Musculoskeletal: No Clubbing, No Cyanosis and No Edema
Skin: Negative Rash
Neuro: Nonfocal/Grossly Intact
[2024-04-12] MEDS: STERILE WATER FOR INJECTION 10 ML IV (16:45)
[2024-04-12] MEDS: ROCEPHIN 1000 MG IV (16:45)
[2024-04-12] MEDS: NON-FORMULARY ITEM 1 UNIT NASAL ×2 (20:28→20:29)
[2024-04-12 23:04] VITALS: BP 132/76
[2024-04-13] MEDS: SYNTHROID 112 MCG PO (04:51)
[2024-04-13 07:20] VITALS: BP 145/84
[2024-04-13] MEDS: PROTONIX 20 MG PO (08:22)
[2024-04-13] MEDS: HEPARIN 5000 UNITS SC (08:23)
[2024-04-13] MEDS: CRESTOR 5 MG PO (08:23)
[2024-04-13] MEDS: ZYRTEC 10 MG PO (08:23)
[2024-04-13] MEDS: VISBIOME 1 CAP PO (08:23)
[2024-04-13] MEDS: NON-FORMULARY ITEM 1 UNIT NASAL ×2 (08:24)
--- NOTE | 2024-04-13 09:51 | W.PN.HOSP.TC ---
Today's Communication/Plan
-
Continue antibiotics. Monitor cultures.
Assessment / Plan
Assessment / Plan
Physical exam:
General: Well Developed, Well Nourished and No Apparent Distress
HEENT: Normocephalic, Atraumatic and Moist Mucous Membranes
Respiratory: Clear to Auscultation; Negative Wheezes, Rales or Rhonchi
Cardiac: Regular Rhythm and S1/S2
GI: Soft, Nontender and Nondistended
Musculoskeletal: Right knee no erythema, improved range of motion but still limited. No Clubbing, No Cyanosis and No Edema
Neuro: Awake, Alert and Oriented
Psych: Calm
IMPRESSION:
Right knee monoarthritis with concern for septic arthritis
Diffuse joint pain with prior history of osteoarthritis
Status post fall 3 months prior to presentation
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
Other conditions
Hypothyroidism.
GERD.
PLAN:
Right knee arthritis with concern for septic arthritis
Status post diagnostic arthrocentesis in ED
Synovial fluid with significant leukocytosis over 20K with neutrophil predominance. Gram stain negative pending cultures. Crystal negative
Noted with very mild elevation of CRP.
Follow synovial fluid cultures
Follow blood cultures.
Orthopedic and ID consult appreciated
Empiric antibiotics initiated in ED: Consolidated from vancomycin/ceftriaxone to ceftriaxone alone
Low risk but will check Lyme titer.
Check rheumatoid factor
Persistent lower back pain
MRI of the lumbar spine from 02/21 reviewed and findings consistent with subacute nondisplaced fracture at S4, superior endplate fracture at L2, multilevel DJD to lumbar spine, moderate bilateral facet joint arthrocentesis at L5/S1.
If persistent pain, positive blood cultures or febrile, would consider to repeat study.
Hypothyroidism on supplementation
Today on 04/13:
Orthopedic has low suspicion for septic arthritis. Nevertheless recommended to follow-up cultures.
ID rather had more concerns for septic arthritis.
Overall I think she is moving in the right direction (agree less likely septic arthritis) and if ID agrees to stop antibiotic might be able to start planning discharge.
Patient very eager to go home today since she is caring for her who has brain cancer but I discussed with her that I cannot discharge her until cleared by ID and no infection source found. Otherwise she will need to sign AGAINST MEDICAL
ADVICE and I explained risk and benefits but counseled her not to do so. Per last note from ID continue antibiotics IV ceftriaxone.
Anticipated Discharge: Within 24 hours
Subjective/Interval History
-
Date of Service: April 13, 2024
Patient feels better in her right knee. Less pain and swelling. Afebrile
Objective Data
-
Vital Signs:
Vital Signs
Temp Pulse Resp BP Pulse Ox
97.7 F 100 16 145/84 99
04/13/24 07:20 04/13/24 07:20 04/13/24 07:20 04/13/24 07:20 04/13/24 07:20
I&O
04/12/24 04/13/24 04/14/24
06:59 06:59 06:59
Intake Total 480 / 480 695 / 695
Balance 480 / 480 695 / 695
[2024-04-13] MEDS: TYLENOL 650 MG PO (11:48)
--- NOTE | 2024-04-13 13:46 | W.DCSUMMARY ---
Discharge Summary
Discharge Data
Date of Admission: 04/11/24
Date of Discharge: 04/13/24
-
Pending Results: Yes
Additional Pending Results:
Joint cultures.
Hospital Course
Patient is 73 years old female history of hypothyroidism asthma and GERD came into the with right knee pain and swelling and erythema. Patient was started on broad-spectrum IV antibiotics. Orthopedic and ID were consulted. Arthrocentesis was done
and it did reveal some elevated WBC up to 26,000 but gram-negative and cultures have been negative. Ortho feels less likely an infectious etiology such as septic arthritis. Nevertheless, ID feels that she does have some evidence of
infection/septic arthritis but they do agree that she does not need surgical intervention at the moment and they would like to treat her empirically for Lyme arthritis with oral doxycycline for 4 weeks. Otherwise, she is hemodynamically stable and
afebrile and her knee pain and swelling has subsided substantially. ID cleared her for discharge today. She will be discharged in stable condition today.
Discharge duration: 35 minutes
Discharge Plan
-
Patient Disposition: Home (Routine Discharge)
Discharge Diagnosis/Procedures: Right knee septic arthritis and concerns for Lyme arthritis.
Diet: Low Cholesterol
Activity: As tolerated
Blood Work: Please PCP to order CBC, BMP within 1 week
Referrals:
Esvin Mandel MD [Active] - in two to three weeks
Emeli Reza MD [Family Provider] - in less than 1 week
Erin Luna MD [Active] - in two to three weeks
Prescriptions:
New
doxycycline hyclate 100 mg Capsule
100 mg PO Q12 28 Days Qty: 56 0RF
Continued
cetirizine [Zyrtec] 10 mg Tablet
10 mg PO DAILY
pantoprazole [Protonix] 20 mg Tablet,Delayed Release (Dr/Ec)
20 mg PO DAILY
levothyroxine [Synthroid] 112 mcg Tablet
112 mcg PO DAILY
rosuvastatin 5 mg Tablet
5 mg PO DAILY
Visbiome 112.5 billion cell Capsule
1 cap PO DAILY
fluticasone prp-sod.chl,bicarb 50 mcg- 0.9 % Kit,Yancey Suspension And Yancey
1 spray INTRANASAL BID
Rx Instructions:
1 SPRAY EACH NOSTRIL BID
dntuqh-yfpuyipibql-KmSy-NaHCO3 137 mcg-50 mcg- 0.9 % Kit,Yancey Suspension And Yancey
1 spray INTRANASAL BID
Rx Instructions:
1 SPRAY EACH NOSTRIL BID
Discharge Orders:
Discharge Patient (As Directed); Ordered 04/13/24
Ordered By: Devendra Land
Discharge Date and Time
Discharge Date/Time: 04/13/24 17:24
Print Language: PALAUAN
[2024-04-13 15:10] VITALS: BP 142/74
--- NOTE | 2024-04-13 15:43 | W.PN.ID1 ---
Date of Service
Date of Service: April 13, 2024
Today's Communication
continue empiric doxycycline plan 4 week course
stable for dc from ID perspective
Assessment / Plan
Acute right knee effusion
Suspected right knee septic arthritis
Elevated CRP
GERD
Hypothyroidism
Asthma
Recommendations:
Synovial fluid: neg crystals, cx neg to date.
synovial fluid Lyme PCR pending; serum Lyme screen pending
stop ceftriaxone
continue empiric doxycycline plan 4 week course
stable for dc from ID perspective
Chief Complaint
-: Other (knee pain)
Subjective / Review of Systems
leg less swollen
now able to bear weight
wants to go home to be with her who has GBM
Vital Signs / Physical Exam
Vital Signs
Vital Signs
Temp Pulse Resp BP Pulse Ox
97.7 F 100 16 145/84 99
04/13/24 07:20 04/13/24 07:20 04/13/24 07:20 04/13/24 07:20 04/13/24 07:20
Physical Exam
Constitutional: No Acute Distress
Cardiovascular: Regular Rate and S1/S2; Negative Murmur or Rub
Pulmonary: Clear and Symmetric; Negative Wheezes or Rales
Gastrointestinal: Soft, Non Tender, Non Distended and Normal Bowel Sounds
Extremities: Other (right knee with mild swelling, no erythema/warmth; able to bear weight)
Skin: Warm and Dry; Negative Rash or Jaundice
Neurological: Awake
Objective Data
Lab Data
Lab Results
04/11/24 09:14
04/11/24 09:14
ESR 19 mm/hour (0-20) 04/11/24 09:14
Estimated Creat Clear 62 ml/min 04/11/24 09:14
C-Reactive Protein 22.80 mg/L (0.0-10.00) H 04/11/24 09:14
Most recent labs reviewed.
Micro Results:
04/11/24 11:14 Body Fluid Culture - Preliminary
Joint Fluid No Growth After 48 Hours
Gram Stain - Preliminary
04/11/24 15:39 Blood Culture - Preliminary
Blood/Venous No Growth in 24 hours- Final report to follow
04/11/24 15:39 Blood Culture - Preliminary
Blood/Venous No Growth in 24 hours- Final report to follow
Laboratory Tests
04/11/24
11:14
Fluid WBC 25324
Fluid Mononuclear Cell 10.8
Fl Polymorphonucl Cell 89.2
Cryatal Exam no crystals seen
Care Review
Plan reviewed with: Physician (Dr Shanda albright)
[2024-04-13] MEDS: VIBRAMYCIN 100 MG PO (15:52)
--- NOTE | 2024-04-13 15:53 | CM ---
Chart reviewed and plan is to home with spouse.
Plan; Home with spouse.
[2024-04-13] MEDS: STERILE WATER FOR INJECTION IV (16:13)
[2024-04-13] MEDS: ROCEPHIN IV (16:13)
[2024-04-15 11:23] LABS: Lyme Antibody Screen, EIA Negative (Negative); Rheumatoid Agglutinin Less Than 10 IU (<10 IU)
[2024-04-15 19:18] LABS: Lyme Disease DNA by PCR Not Detected; Lyme Source Synovial fluid
== END 2024-04-13 17:24 | disposition home or self-care (01) | DRG 550 ==
LOC: 4 WEST ACU 16:38
PROVIDERS: ADMITTING PHYSICIAN Internal Medicine; ATTENDING PHYSICIAN Hospitalist; CONSULT PHYSICIAN Internal Medicine Infectious Disease; CONSULT PHYSICIAN Orthopaedic Surgery; EMERGENCY PHYSICIAN Student in an Organized Health Care Education/Training Program; FAMILY PHYSICIAN Family Medicine
PROC: 0S9C3ZZ Drainage of Right Knee Joint, Percutaneous Approach (ICD-10-PCS; 2024-04-11)
DX: M00.9 Pyogenic arthritis, unspecified (principal); M25.461 Effusion, right knee; M17.11 Unilateral primary osteoarthritis, right knee; E89.0 Postprocedural hypothyroidism; J45.909 Unspecified asthma, uncomplicated; K21.9 Gastro-esophageal reflux disease without esophagitis; G89.29 Other chronic pain; M51.36 Other intervertebral disc degeneration, lumbar region; Z91.81 History of falling; Z79.890 Hormone replacement therapy
CPT/HCPCS: 20610; 73564; 80048; 85025; 85652; 86140; 86430; 86618; 86803; 87015; 87040; 87070; 87205; 87476; 89051; 89060; 96374; 97116; 97162; 99285

== ENCOUNTER 2024-05-12 11:13 | Emergency (ER) | payer OTHER, SELFPAY ==
[2024-05-12 11:14] VITALS: BP 145/90
--- NOTE | 2024-05-12 14:09 | ED.GENMED ---
History of Present Illness
General
Chief Complaint: Back Pain
Source: patient
Time Seen by Provider: 05/12/24 13:05
History of Present Illness
History of Present Illness:
3-year-old female with past medical history of lymphoma presenting to the emergency department for evaluation of back pain x 3 days which she states she believes is related to helping her get his legs into bed. Patient is the primary
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 She herself states that she has had back related issues over the last few months noting a recent sacroiliac and lumbar spine fracture from a fall but states she had started to
get better from this. Patient states the midportion of her back is what is bothering her the most. She denies any fevers or infectious symptoms or acute neurologic symptoms she has been attempting [id number]-[id number]-[id number] measures with minimal relief.
Also of note, patient had a fine-needle biopsy done of the lymph node at [place] about 10 days ago and is scheduled to get the results of this tomorrow at a follow-up visit.
Past History
Past History
ED Past Medical History: Asthma, Cancer and Other (Kidney stone 30 years ago)
ED Past Surgical History: Gynecological
Social History
Tobacco: Non-smoker
Alcohol: None
Drug: None
Personal:
Living: with family
Employment: Employed
Family History
Family History: Other (Noncontributory)
Review of Systems
Review of Systems
All Other Systems: ROS reviewed and negative except as documented in HPI and ROS
Phy Exam
Physical Exam
Physical Exam:
GENERAL: Alert , in no apparent distress
EYE: clear conjunctiva b/l
NECK: Supple
ENT: mmm.
BACK: Normal range of motion, no focal tenderness, no midline bony tenderness, no rashes, no overlying ecchymosis/areas of edema
NEUROLOGICAL: Alert and oriented, no focal neuro deficits. Patellar deep tendon reflexes intact and equal bilaterally, sensation grossly intact and equal to light touch bilateral lower extremities
SKIN: Warm and dry, skin intact.
MUSCULOSKELETAL: No edema, well perfused. EHL intact bilaterally
PSYCH: Normal and appropriate interaction.
Scores
Heart Failure Risk
Heart Failure Risk Score: Not Applicable
Heart Score for Chest Pain Patients
STEMI patient?: Not applicable
Withdrawal Assessment of Alcohol
Withdrawal Assessment Completed?: Not applicable
Course
Orders/Labs/Results
Orders:
Orders
05/12/24 13:21
CR Lumbar Spine Comp Min 4 Vw* Urgent
Comment:
Reason For Exam: back pain, recent sacral fx
CR Thoracic Spine 3 Views Urgent
Comment:
Reason For Exam: mid back pain
Vital Signs
Initial and Last Documented VS:
Initial Vital Signs
Temp Pulse Resp BP Pulse Ox
98.6 F 100 16 145/90 99
05/12/24 11:14 05/12/24 11:14 05/12/24 11:14 05/12/24 11:14 05/12/24 11:14
Last Documented Vital Signs
Temp Pulse Resp BP Pulse Ox
98.6 F 100 16 145/90 99
05/12/24 11:14 05/12/24 11:14 05/12/24 11:14 05/12/24 11:14 05/12/24 11:14
MDM/Problems Addressed
Differential Diagnosis Includes:
Thoracolumbar strain, compression fracture, disc herniation or nerve impingement, given recent procedure I did consider a hematoma, less concern for an acute infectious etiology
MDM/Problems Addressed:
23-year-old female presenting to the emergency department for evaluation of back pain that she states started when she lifted her 's legs to get him into bed and pain has not improved with vxde-fbu-xugvewy measures. Patient without fevers or
infectious symptoms or any acute neurologic symptoms. Patient was hoping to get imaging to get a better idea as to what might be causing her pain. She does have known osteoporosis and this could be a contributing factor. X-ray imaging ordered.
Anticipate discharge home
*Radiology
Radiology exam reviewed: radiology read reviewed
*Pulse Oximetry
Patient hypoxic: no
*Critical Care Note
Total Time (30-74mins, 75-104mins- exclusive of procedures): Not Applicable
Patient Management
Escalation/DeEscalation of care consider admission/obs:
Degenerative changes on x-ray. Patient stable for discharge home. Prescription for Medrol pack and muscle relaxant sent to pharmacy. Patient will follow-up with primary care provider.
ED Attending Note
-
Portions of this chart may have been created with voice recognition software.� Occasional wrong word or��sound alike� substitutions may have occurred due to the inherent limitations of voice recognition software.
Discharge Plan
Departure
Patient Disposition: Home (Routine Discharge)
Date of Disposition: 05/12/24
Time of Disposition: 14:54
Patient with high blood pressure during this ER visit?: Yes
Discharge Problem:
Dorsalgia
Instructions: Back Pain
Prescriptions:
New
baclofen 10 mg tablet
10 mg PO BID Qty: 6 0RF
methylprednisolone [Medrol ([place])] 4 mg tablets,dose pack
4 mg PO DIRECTED Qty: 21 0RF
No Action
cetirizine [Zyrtec] 10 mg Tablet
10 mg PO DAILY
pantoprazole [Protonix] 20 mg Tablet,Delayed Release (Dr/Ec)
20 mg PO DAILY
levothyroxine [Synthroid] 112 mcg Tablet
112 mcg PO DAILY
rosuvastatin 5 mg Tablet
5 mg PO DAILY
Visbiome 112.5 billion cell Capsule
1 cap PO DAILY
fluticasone prp-sod.chl,bicarb 50 mcg- 0.9 % Kit,[place] Suspension And [place]
1 spray INTRANASAL BID
Rx Instructions:
1 SPRAY EACH NOSTRIL BID
jizbyb-mcyhkkxzaoz-CpGc-NaHCO3 137 mcg-50 mcg- 0.9 % Kit,[place] Suspension And [place]
1 spray INTRANASAL BID
Rx Instructions:
1 SPRAY EACH NOSTRIL BID
doxycycline hyclate 100 mg Capsule
100 mg PO Q12 28 Days Qty: 56 0RF
Referrals:
Juan Miguel Vargas MD [Active] - (Ortho)
Emeli Reza MD [Family Provider] -
Interventions
Interventions:
*Risk Screen - Suicide Last Done: 05/12/24 11:14
*General Assessment Last Done: 05/12/24 11:14
*ED COVID-19 Vaccine History Last Done: 05/12/24 11:14
*Nursing Disposition Last Done: 05/12/24 15:17
ED-Musculoskeletal Assessment Last Done: 05/12/24 15:17
Discharge Date and Time
Discharge Date/Time: 05/12/24 15:18
Print Language: TRISTANIAN
== END 2024-05-12 15:18 | disposition home or self-care (01) ==
LOC: EMR 11:13
PROVIDERS: EMERGENCY PHYSICIAN Emergency Medicine; FAMILY PHYSICIAN Family Medicine
DX: M54.6 Pain in thoracic spine (principal); S32.009A Unspecified fracture of unspecified lumbar vertebra, initial encounter for closed fracture; W19.XXXA Unspecified fall, initial encounter; R03.0 Elevated blood-pressure reading, without diagnosis of hypertension; J45.909 Unspecified asthma, uncomplicated; M81.0 Age-related osteoporosis without current pathological fracture; Z85.72 Personal history of non-Hodgkin lymphomas; Z98.890 Other specified postprocedural states; Z87.442 Personal history of urinary calculi; Z91.048 Other nonmedicinal substance allergy status
CPT/HCPCS: 99283; 72072; 72110

== ENCOUNTER → 2024-05-17 11:47 | Outpatient (REF) | payer OTHER, SELFPAY | LOC: PAVMRI 11:47 | PROVIDERS: ATTENDING PHYSICIAN Nurse Practitioner Adult Health | DX: M54.6 Pain in thoracic spine (principal) | CPT/HCPCS: 72146 ==

== ENCOUNTER → 2025-01-01 10:43 | Outpatient (REF) | payer OTHER, SELFPAY | LOC: RAD 10:43 | PROVIDERS: ATTENDING PHYSICIAN Internal Medicine Rheumatology; FAMILY PHYSICIAN Family Medicine | DX: Z78.0 Asymptomatic menopausal state (principal) | CPT/HCPCS: 77080 ==

== ENCOUNTER → 2025-01-22 15:07 | Outpatient (REF) | payer OTHER, SELFPAY | LOC: RAD 15:07 | PROVIDERS: ATTENDING PHYSICIAN Urology; FAMILY PHYSICIAN Family Medicine | DX: R31.0 Gross hematuria (principal) | CPT/HCPCS: 74178; Q9967 ==

== ENCOUNTER → 2025-03-11 12:58 | Outpatient (REF) | payer OTHER, SELFPAY | LOC: WDC 12:58 | PROVIDERS: ATTENDING PHYSICIAN Family Medicine | DX: Z12.31 Encounter for screening mammogram for malignant neoplasm of breast (principal) | CPT/HCPCS: 77063; 77067 ==